=== PATIENT | male | born 1995 | race Asian ===

== ENCOUNTER 2016-03-02 22:27 | Emergency (ER) | payer BC ==
[2016-03-02] MEDS ORDERED: predniSONE TAB* 20 MG PO ONE (23:01)
[2016-03-02] MEDS ORDERED: EPINEPHrine AMP 1 MG/ML SUBCUT ONE ×2 (23:02→23:42)
[2016-03-02] MEDS ORDERED: diPHENhydraMINE PO* 25 MG PO ONE (23:02)
[2016-03-02] MEDS ORDERED: Famotidine TAB* 20 MG PO ONE (23:03)
[2016-03-02] MEDS ORDERED: EPINEPHrine AMP 1 MG/ML ONE (23:43)
--- NOTE | 2016-03-03 00:17 | ED ---
Rose Edmondson SooYoung, scribed for Luis Lockett on 03/02/16 at 2303 . Allergic Reaction/Systemic - HPI Summary HPI Summary: A 20 y/o M presents to ED with c/o diffuse pruritic rash onset this AM upon waking. He noticed that it went away after about an hour, but returned around 1700 today. Denies SOB, sore throat. Used Calamine lotion and took 50 mg Benadryl at 2100. He notes having a seafood allergy, and that his girlfriend had eaten fish for dinner last night. Pt is a nonsmoker, but does drink. - History of Current Complaint Chief Complaint: EDAllergicReaction Time Seen by Provider: 03/02/16 22:56 Hx Obtained From: Patient Onset/Duration: Sudden Onset, Started hours ago - THIS AM, Still Present Timing: Constant Severity Currently: None Pain Intensity: 0 Pain Scale Used: 0-10 Numeric Location: Diffuse Character: Pruritus - Allergies/Home Medications Allergies/Adverse Reactions: Allergies Allergy/AdvReac Type Severity Reaction Status Date / Time seafood Allergy Hives Uncoded 03/02/16 22:36 PMH/Surg Hx/FS Hx/Imm Hx Previously Healthy: Yes Endocrine/Hematology History: Denies: Hx Diabetes Infectious Disease History: No Infectious Disease History: Denies: Traveled Outside the [place] in Last 30 Days - Family History Known Family History: Positive: Hypertension Negative: Diabetes - Social History Occupation: Student Lives: With Family - [employer] Alcohol Use: Occasionally Hx Tobacco Use: No Review of Systems Negative: Fever Negative: Sore Throat Negative: Shortness Of Breath Positive: Rash - diffuse All Other Systems Reviewed And Are Negative: Yes Physical Exam Triage Information Reviewed: Yes Vital Signs On Initial Exam: Initial Vitals Temp Pulse Resp BP Pulse Ox 98.1 F 75 18 142/82 95 03/02/16 22:36 03/02/16 22:36 03/02/16 22:36 03/02/16 22:36 03/02/16 22:36 Vital Signs Reviewed: Yes Appearance: Positive: Well-Appearing, No Pain Distress Skin: Positive: Warm, Skin Color Reflects Adequate Perfusion, Dry, Other - DIFFUSE MACROPAPULAR RASH Head/Face: Positive: Normal Head/Face Inspection Eyes: Positive: EOMI, RL ENT: Positive: Normal ENT inspection Neck: Positive: Supple, Nontender Respiratory/Lung Sounds: Positive: Clear to Auscultation, Breath Sounds Present Cardiovascular: Positive: RRR, Pulses are Symmetrical in both Upper and Lower Extremities Abdomen Description: Positive: Nontender, Soft Bowel Sounds: Positive: Present Musculoskeletal: Positive: Normal, Strength/ROM Intact - 4XFROM Neurological: Positive: Normal, Sensory/Motor Intact, Alert, Oriented to Person Place, Time Diagnostics - Vital Signs Vital Signs Temp Pulse Resp BP Pulse Ox 03/02/16 22:36 98.1 F 75 18 142/82 95 - Laboratory Lab Statement: Any lab studies that have been ordered have been reviewed, and results considered in the medical decision making process. Re-Evaluation - Re-Evaluation 1 Re-Evaluation Time: 23:37 Change: Improved Comment: Pt states he is feeling better. Will order one more dose of epi. Allergic Reaction Course/Dx - Course Course Of Treatment: MDM: Pt is a 20 y/o M presents with diffuse macropapular rash onset this AM. Pt is allergic to seafood and notes that his girlfriend ate seafood last night. Ordered epinephrine, pepcid, benadryl, deltasone. Pt is feeling better after re-eval. Rash is slowly resolving. Ordered another dose of epi. Pt will be d/c with Medrol dosepack, pepcid and benadryl, and told to follow-up with PCP in 2-3 days. Pt voiced understanding. - Diagnoses Provider Diagnoses: Allergic reaction Discharge - Discharge Plan Condition: Stable Disposition: HOME Prescriptions: Famotidine [Pepcid] 20 mg PO BID #14 tab Methylprednisolone [Medrol Dosepak 4 MG*] 0 mg PO .SEE RADHA INSTRUCTION #1 tab diPHENhydraMINE PO* [Benadryl PO*] 25 mg PO Q6H PRN #20 cap MDD 3 PRN Reason: Itching Patient Education Materials: General Allergic Reaction (ED), Methylprednisolone (By mouth) Referrals: No Primary Care Phys,NOPCP [Primary Care Provider] - [facility] [Outside] Additional Instructions: Please follow-up with a primary care provider in 2-3 days. Take the medications as prescribed. If your symptoms persist or worsen, please return to the Emergency Department. The documentation as recorded by the Rose miranda SooYoung accurately reflects the service I personally performed and the decisions made by me, Luis Lockett.
[2016-03-03 01:46] VITALS: BP 118/74
== END 2016-03-03 01:30 | disposition home or self-care (01) ==
LOC: ED 22:27
DX: T78.40XA Allergy, unspecified, initial encounter (principal); X58.XXXA Exposure to other specified factors, initial encounter; Y92.9 Unspecified place or not applicable
CPT/HCPCS: 99283; A9270-GY; J0171; J7512